=== PATIENT | female | born 1970 | race Caucasian/White ===

== ENCOUNTER → 2017-05-20 22:08 | Emergency (ER) | payer OTHER ==
[~2017-05-20 22:08] MED LIST: Famotidine TAB* 20 MG PO ONE; Ketorolac INJ* 60 MG/2 ML VIAL IM ONE
[2017-05-20 22:30] VITALS: BP 107/89
--- NOTE | 2017-05-20 23:17 | ED ---
Sabrina Cortez Alok, scribed for Danny Jordan MD on 05/20/17 at 2232 . Skin Complaint - HPI Summary HPI Summary: 47F presents to the ED for multiple insect bites on her back. Pt states that she was stung a total of 8 times on her back at 2030 which became immediately stinging and pruritus followed by tingling of her upper and lower extremities. Pt applied hydrocortisone to her bites and took two Benadryl at approximately 2040. Pt also notes nausea after her insect bites lasting minutes. Pt denies dyspnea or dysphagia. The insect which bit the pt was brought for inspection. - History of Current Complaint Chief Complaint: EDAllergicReaction Time Seen by Provider: 05/20/17 22:15 Stated Complaint: ALLERGIC REACTION TO BEE STING Hx Obtained From: Patient Hx Last Menstrual Period: hysterectomy Onset/Duration: Started Hours Ago, Still Present Skin Exposure Onset/Duration: Hours Ago Timing: Constant Onset Severity: Moderate Current Severity: Moderate Skin Location: Other: - back Character: Pruritus, Pain Aggravating Symptom(s): Nothing Alleviating Symptom(s): OTC Meds - benadryl, OTC Creams/Salves - hydrocortisone Associated Signs & Symptoms: Nausea - Allergy/Home Medications Allergies/Adverse Reactions: Allergies Allergy/AdvReac Type Severity Reaction Status Date / Time No Known Allergies Allergy Verified 03/17/16 11:56 PMH/Surg Hx/FS Hx/Imm Hx Endocrine/Hematology History: Denies: Hx Diabetes, Hx Thyroid Disease Cardiovascular History: Denies: Hx Hypertension, Hx Pacemaker/ICD Respiratory History: Denies: Hx Asthma, Hx Chronic Obstructive Pulmonary Disease (COPD) GI History: Denies: Hx Ulcer Musculoskeletal History: Denies: Hx Rheumatoid Arthritis, Hx Osteoporosis Sensory History: Denies: Hx Hearing Aid Psychiatric History: Denies: Hx Panic Disorder - Cancer History Hx Chemotherapy: No Hx Radiation Therapy: No - Surgical History Surgery Procedure, Year, and Place: CARPAL TUNNEL REPAIR 07/06/12. HYSTERECTOMY 2006. 1987. APPENDECTOMY 2004. tubal ligation Infectious Disease History: Denies: Hx Hepatitis, Hx Human Immunodeficiency Virus (HIV), History Other Infectious Disease, Traveled Outside the [place] in Last 30 Days - Family History Known Family History: Negative: Cardiac Disease, Hypertension, Diabetes - Social History Lives: With Family Alcohol Use: None Substance Use Type: Reports: None Smoking Status (MU): Former Smoker Amount Used/How Often: 1-2 cig. day Review of Systems Negative: Fever Negative: Other - dysphagia Negative: Other - dyspnea Positive: Nausea Positive: Other - stinging, pruritus All Other Systems Reviewed And Are Negative: Yes Physical Exam Triage Information Reviewed: Yes Vital Signs On Initial Exam: Initial Vital Signs Temp 98.8 F 05/20/17 22:24 Pulse 75 05/20/17 22:24 Resp 16 05/20/17 22:24 BP 107/89 05/20/17 22:24 Pulse Ox 100 05/20/17 22:24 Vital Signs Reviewed: Yes Appearance: Positive: Well-Appearing, No Pain Distress Skin: Positive: Other - Macular areas ranging from 1 mm to 1 cm in diameter back. Lower left side back shows one 6 cm in diameter region. Head/Face: Positive: Normal Head/Face Inspection Eyes: Positive: Normal ENT: Positive: Normal ENT inspection Neck: Positive: Supple, Nontender Respiratory/Lung Sounds: Positive: Clear to Auscultation, Breath Sounds Present Cardiovascular: Positive: RRR Abdomen Description: Positive: Nontender, Soft Bowel Sounds: Positive: Present Musculoskeletal: Positive: Normal Neurological: Positive: Normal Psychiatric: Positive: Normal, Affect/Mood Appropriate Diagnostics - Vital Signs Vital Signs Temp Pulse Resp BP Pulse Ox 05/20/17 22:24 98.8 F 75 16 107/89 100 - Laboratory Lab Statement: Any lab studies that have been ordered have been reviewed, and results considered in the medical decision making process. Course/Dx - Course Course Of Treatment: Ms. Sanchez was bitten/stung by a large insect on the back. They brought the bug but is is pretty crushed it is likelya typ of wasp. She had pain and itching and then got nauseated and felt faint. Her fiingers and arms got tingly. She took benadryl and felt somewhat better on arrival. She was additionally given pepcid and observed here. I expect that she will go home if she continues to feel well. - Diagnoses Provider Diagnoses: Hymenoptera reaction Discharge - Discharge Plan Condition: Stable Disposition: HOME Patient Education Materials: Insect Bite or Sting (ED) Referrals: Yary Fierro EAP COUNSELOR [Primary Care Provider] - The documentation as recorded by the Sabrina peña Alok accurately reflects the service I personally performed and the decisions made by me, Danny Jordan MD.
== END | disposition home or self-care (01) ==
LOC: ED 22:08
DX: T63.441A Toxic effect of venom of bees, accidental (unintentional), initial encounter (principal); Y92.89 Other specified places as the place of occurrence of the external cause; L29.9 Pruritus, unspecified; Z87.891 Personal history of nicotine dependence
CPT/HCPCS: 96372; 99282; A9270-GY

== ENCOUNTER 2017-10-29 21:38 | Emergency (ER) | payer OTHER ==
[2017-10-29 21:57] VITALS: BP 141/89
--- NOTE | 2017-10-29 22:02 | ED ---
Lower Extremity - HPI Summary HPI Summary: 47 yr old female with the complaint of left lateral foot pain. She fell down stairs last night. She has been walking all day on her foot but it hurts to bear weight over the lateral toe and foot left foot. She has an abrasion to the lower left leg, but no pain on bearing weight there. Her Tetanus shot is up to date. She has no other complaint.s - History of Current Complaint Chief Complaint: UCLowerExtremity Stated Complaint: LEFT FOOT INJ Time Seen by Provider: 10/29/17 21:47 Hx Last Menstrual Period: hysterectomy - Allergies/Home Medications Allergies/Adverse Reactions: Allergies Allergy/AdvReac Type Severity Reaction Status Date / Time No Known Allergies Allergy Verified 10/29/17 21:45 Home Medications: Home Medications Ibuprofen TAB* [Advil TAB*] 800 mg PO Q6H PRN 10/29/17 [History Confirmed ] Omeprazole CAP* [Prilosec CAP* 20 MG] 20 mg PO DAILY 10/29/17 [History Confirmed 10/29/17] PMH/Surg Hx/FS Hx/Imm Hx Endocrine/Hematology History: Denies: Hx Diabetes, Hx Thyroid Disease Cardiovascular History: Denies: Hx Hypertension, Hx Pacemaker/ICD Respiratory History: Denies: Hx Asthma, Hx Chronic Obstructive Pulmonary Disease (COPD) GI History: Denies: Hx Ulcer Musculoskeletal History: Denies: Hx Rheumatoid Arthritis, Hx Osteoporosis Sensory History: Denies: Hx Hearing Aid Psychiatric History: Denies: Hx Panic Disorder - Cancer History Hx Chemotherapy: No Hx Radiation Therapy: No - Surgical History Surgery Procedure, Year, and Place: CARPAL TUNNEL REPAIR 07/06/12. HYSTERECTOMY 2006. 1987. APPENDECTOMY 2004. tubal ligation Infectious Disease History: No Infectious Disease History: Denies: Hx Hepatitis, Hx Human Immunodeficiency Virus (HIV), History Other Infectious Disease, Traveled Outside the [place] in Last 30 Days - Family History Known Family History: Positive: None Negative: Cardiac Disease, Hypertension, Diabetes - Social History Occupation: Employed Full-time Lives: With Family Alcohol Use: None Substance Use Type: Reports: None Smoking Status (MU): Heavy Every Day Tobacco Smoker Amount Used/How Often: 1/2 PPD Have You Smoked in the Last Year: Yes Review of Systems Constitutional: Negative Positive: Other - trauma to left foot All Other Systems Reviewed And Are Negative: Yes Physical Exam Triage Information Reviewed: Yes Vital Signs On Initial Exam: Initial Vitals Temp Pulse Resp BP Pulse Ox 98 F 101 16 141/89 100 10/29/17 21:50 10/29/17 21:50 10/29/17 21:50 10/29/17 21:50 10/29/17 21:50 Vital Signs Reviewed: Yes Appearance: Positive: Well-Appearing, No Pain Distress Skin: Positive: Warm, Other - bruise over the left 5th toe and and abrasion over the left anterior pretibial surface that is small 1 cm in diameter.. Eyes: Positive: EOMI Neck: Positive: Supple, Nontender. Negative: Tenderness @ Respiratory/Lung Sounds: Positive: Clear to Auscultation, Breath Sounds Present Cardiovascular: Positive: RRR. Negative: Murmur Abdomen Description: Positive: Nontender. Negative: CVA Tenderness (R), CVA Tenderness (L) Musculoskeletal: Positive: Strength/ROM Intact Neurological: Positive: Sensory/Motor Intact, Alert, Oriented to Person Place, Time, CN Intact II-III Psychiatric: Positive: Normal - Shunk Coma Scale Best Eye Response: 4 - Spontaneous Best Motor Response: 6 - Obeys Commands Best Verbal Response: 5 - Oriented Diagnostics - Vital Signs Vital Signs Temp Pulse Resp BP Pulse Ox 10/29/17 21:50 98 F 101 16 141/89 100 - Laboratory Lab Statement: Any lab studies that have been ordered have been reviewed, and results considered in the medical decision making process. - Radiology left foot Xray Interpretation: Positive (See Comments) Radiology Interpretation Completed By: ED Physician Lower Extremity Course/Dx - Course Course Of Treatment: 47 yr old with bruising to the left 5th toe, and abrasion with td up to date. Fracture on xray. Post op shoe. she was told to follow up with orthopedics next week. - Diagnoses Provider Diagnoses: Fracture of fifth toe, left, closed, Hypertension Discharge - Discharge Plan Condition: Good Disposition: HOME Patient Education Materials: Toe Fracture (ED) Referrals: Yary Fierro NP [Primary Care Provider] - 2 Days Grant Watkins MD [Medical Doctor] - 2 Days
--- NOTE | 2017-10-30 07:49 | RAD ---
INDICATION: Left foot trauma COMPARISON: None TECHNIQUE: AP, lateral, and oblique views were obtained. FINDINGS: The bony structures, joint spaces, and soft tissues are normal for age. IMPRESSION: NO ACUTE FRACTURE. IF THERE IS PERSISTENT PAIN, SUGGEST FOLLOW-UP IN 7-10 DAYS.
== END 2017-10-29 22:40 | disposition home or self-care (01) ==
LOC: UCCORT 21:38
DX: S92.502A Displaced unspecified fracture of left lesser toe(s), initial encounter for closed fracture (principal); S80.812A Abrasion, left lower leg, initial encounter; W10.9XXA Fall (on) (from) unspecified stairs and steps, initial encounter; Y93.9 Activity, unspecified; Y92.9 Unspecified place or not applicable; Y99.9 Unspecified external cause status; Z72.0 Tobacco use
CPT/HCPCS: 99212; G0463

== ENCOUNTER 2017-12-31 11:55 | Emergency (ER) | payer OTHER ==
[2017-12-31 12:07] VITALS: BP 126/92
--- NOTE | 2017-12-31 12:17 | UC ---
Respiratory Complaint HPI - HPI Summary HPI Summary: cough x 1 day + fever , chills body aches no sore throat, concern about Flu - History of Current Complaint Chief Complaint: UCGeneralIllness Stated Complaint: FLU SYMPTOMS Time Seen by Provider: 12/31/17 12:12 Hx Obtained From: Patient Hx Last Menstrual Period: hysterectomy Onset/Duration: Sudden Onset, Lasting Days - 1, Still Present Timing: Constant Severity Initially: Moderate Severity Currently: Moderate Pain Intensity: 4 Character: Cough: Nonproductive Aggravating Factors: Allergens, Deep Breaths Alleviating Factors: Nothing Associated Signs And Symptoms: Positive: Fever, Chills, URI. Negative: Dyspnea , Pleuritic Chest Pain, Hemoptysis, Dizziness, Calf Pain, Calf Swelling - Allergies/Home Medications Allergies/Adverse Reactions: Allergies Allergy/AdvReac Type Severity Reaction Status Date / Time No Known Allergies Allergy Verified 12/31/17 12:07 Home Medications: Home Medications Citalopram TAB* [CeleXA TAB*] 20 mg PO DAILY 12/31/17 [History Confirmed ] PMH/Surg Hx/FS Hx/Imm Hx Psychological History: Anxiety, Depression - Surgical History Surgical History: Yes Surgery Procedure, Year, and Place: CARPAL TUNNEL REPAIR 07/06/12. HYSTERECTOMY 2006. 1987. APPENDECTOMY 2004. tubal ligation - Family History Known Family History: Positive: None Negative: Cardiac Disease, Hypertension, Diabetes - Social History Alcohol Use: None Substance Use Type: None Smoking Status (MU): Heavy Every Day Tobacco Smoker Amount Used/How Often: 1/2 PPD Have You Smoked in the Last Year: Yes Household Exposure Type: Cigarettes Review of Systems Constitutional: Fever, Chills, Fatigue Skin: Negative Eyes: Negative ENT: Nasal Discharge Respiratory: Cough Cardiovascular: Negative Gastrointestinal: Negative Genitourinary: Negative Musculoskeletal: Arthralgia, Myalgia Is Patient Immunocompromised?: No All Other Systems Reviewed And Are Negative: Yes Physical Exam Triage Information Reviewed: Yes Appearance: Well-Appearing, No Pain Distress, Well-Nourished Vital Signs: Initial Vital Signs Temp 98.9 F 12/31/17 12:04 Pulse 92 12/31/17 12:04 Resp 14 12/31/17 12:04 BP 126/92 12/31/17 12:04 Pulse Ox 99 12/31/17 12:04 Vital Signs Reviewed: Yes Eye Exam: Normal Eyes: Positive: Conjunctiva Clear ENT: Positive: Normal ENT inspection, Hearing grossly normal, Pharynx normal Neck: Positive: Supple, Tenderness @, Enlarged Nodes @ Respiratory: Positive: Chest non-tender, Lungs clear, Normal breath sounds, No respiratory distress Cardiovascular: Positive: RRR, No Murmur, Pulses Normal Abdominal Exam: Normal Abdomen Description: Positive: Nontender, Soft Bowel Sounds: Positive: Present Neurological Exam: Normal Neurological: Positive: Alert, Muscle Tone Normal Skin Exam: Normal UC Diagnostic Evaluation - Laboratory O2 Sat by Pulse Oximetry: 99 Respiratory Course/Dx - Differential Dx/Diagnosis Provider Diagnoses: viral illness Discharge - Discharge Plan Condition: Stable Disposition: HOME Patient Education Materials: Viral Syndrome (ED) Referrals: Yary Fierro NP [Primary Care Provider] - If Needed
== END 2017-12-31 12:45 | disposition home or self-care (01) ==
LOC: UCCORT 11:55
DX: B34.9 Viral infection, unspecified (principal); F41.8 Other specified anxiety disorders; F17.210 Nicotine dependence, cigarettes, uncomplicated
CPT/HCPCS: 87502; 99211; G0463

== ENCOUNTER 2019-06-13 07:03 | Emergency (ER) | payer BC, OTHER ==
[2019-06-13 07:41] LABS: ABS Eosinophils 0.1 10^3/ul (0-0.6); ABS Lymphocytes 1.4 10^3/ul (1.0-4.8); ABS Monocytes 0.3 10^3/ul (0-0.8); ABS Neutrophils 1.7 10^3/ul (1.5-7.7); Eosinophil % 2.5 %; Hematocrit 37 % (35-47); Hemoglobin 12.6 g/dL (12.0-16.0); Lymphocyte % 40.2 %; Mean Corpuscular HGB Conc 34 g/dL (31-36); Mean Corpuscular Hemoglobin 31 pg (27-31); Mean Corpuscular Volume 90 fL (80-97); Mean Platelet Volume 8.8 fL (7.4-10.4); Platelet Count 156 10^3/uL (150-450); Red Blood Count 4.12 10^6 /uL (3.70-4.87); Red Cell Distribution Width 14 % (10-15); White Blood Count 3.5 10^3/uL (3.5-10.8)
[2019-06-13 07:50] LABS: INR 1.1 (0.82-1.09)
[2019-06-13 07:59] LABS: Albumin 4.2 g/dL (3.2-5.2); Albumin/Globulin Ratio 1.6 (1-3); Calcium 9.3 mg/dL (8.6-10.3); EGFR African American 99.4 (>60); EGFR Non-African American 82.1 (>60); Globulin 2.7 g/dL (2-4); Potassium 3.9 mmol/L (3.5-5.0); Total Bilirubin 0.3 mg/dL (0.2-1.0); Total Protein 6.9 g/dL (6.4-8.9)
[2019-06-13 10:16] VITALS: BP 106/81
--- NOTE | 2019-06-13 11:24 | ED ---
Palpitations / Dysrhythmia - HPI Summary HPI Summary: Patient is an otherwise healthy 49-year-old female who presents to the ED with symptoms of heart palpitations. Patient states she has had feelings of palpitations and skipping beats over the past several days. She also endorses some tingling into the left arm. She states she has never had this before. Denies any medication changes and states she only takes Imitrex as needed for migraines which she has not needed recently. She denies any excess caffeine use , but states she tends to have 2 cups of coffee and 2 sodas per day at her baseline. Denies any change in diet. Patient denies any CP or SOB. She states symptoms are not worse or better with positioning or rest. She does not feel a change in the palpitations at morning or at night and states they are constant. She is feeling them currently on arrival. Past medical history includes migraines Social history includes no alcohol, but every day smoking history - History of Current Complaint Chief Complaint: EDChestPainROMI Time Seen by Provider: 06/13/19 07:18 Hx Obtained From: Patient Onset/Duration: Sudden Onset Timing: Constant Severity Initially: Moderate Severity Currently: Moderate Character: Irregular Associated Signs & Symptoms: Negative - Risk Factors Cardiac: Negative Pulmonary Embolism: Negative Atrial Fibrillation: Negative - Allergy/Home Medications Allergies/Adverse Reactions: Allergies Allergy/AdvReac Type Severity Reaction Status Date / Time No Known Allergies Allergy Verified 12/31/17 12:07 PMH/Surg Hx/FS Hx/Imm Hx Previously Healthy: Yes Endocrine/Hematology History: Denies: Hx Diabetes, Hx Thyroid Disease Cardiovascular History: Denies: Hx Hypertension, Hx Pacemaker/ICD Respiratory History: Denies: Hx Asthma, Hx Chronic Obstructive Pulmonary Disease (COPD) GI History: Denies: Hx Ulcer Musculoskeletal History: Denies: Hx Rheumatoid Arthritis, Hx Osteoporosis Sensory History: Denies: Hx Hearing Aid Psychiatric History: Denies: Hx Panic Disorder - Cancer History Hx Chemotherapy: No Hx Radiation Therapy: No - Surgical History Surgery Procedure, Year, and Place: CARPAL TUNNEL REPAIR 07/06/12. HYSTERECTOMY 2006. 1987. APPENDECTOMY 2004. tubal ligation - Immunization History Hx Pertussis Vaccination: No Immunizations Up to Date: Yes Infectious Disease History: No Infectious Disease History: Denies: Hx Hepatitis, Hx Human Immunodeficiency Virus (HIV), History Other Infectious Disease, Traveled Outside the [place] in Last 30 Days - Family History Known Family History: Positive: None Negative: Cardiac Disease, Hypertension, Diabetes - Social History Occupation: Unemployed Lives: With Family Alcohol Use: None Substance Use Type: Reports: None Smoking Status (MU): Heavy Every Day Tobacco Smoker Amount Used/How Often: 1/2 PPD Have You Smoked in the Last Year: Yes Review of Systems Negative: Fever, Chills, Skin Diaphoresis Negative: Shortness Of Breath, Cough Negative: Abdominal Pain, Vomiting, Diarrhea Positive: see HPI Negative: Arthralgia, Myalgia Skin: Negative Neurological: Negative All Other Systems Reviewed And Are Negative: Yes Physical Exam Triage Information Reviewed: Yes Vital Signs On Initial Exam: Initial Vitals Temp Pulse Resp BP Pulse Ox 99.1 F 83 20 134/82 100 06/13/19 07:15 06/13/19 07:15 06/13/19 07:15 06/13/19 07:15 06/13/19 07:15 Vital Signs Reviewed: Yes Appearance: Positive: Well-Appearing, Well-Nourished Skin: Positive: Warm, Skin Color Reflects Adequate Perfusion Head/Face: Positive: Normal Head/Face Inspection Eyes: Positive: EOMI, LINDA, Conjunctiva Clear Neck: Positive: Supple, Nontender, No Lymphadenopathy Respiratory/Lung Sounds: Positive: Clear to Auscultation, Breath Sounds Present Cardiovascular: Positive: RRR, Pulses are Symmetrical in both Upper and Lower Extremities Musculoskeletal: Positive: Normal, Strength/ROM Intact Neurological: Positive: Speech Normal Psychiatric: Positive: Normal, Affect/Mood Appropriate AVPU Assessment: Alert Diagnostics - Vital Signs Vital Signs Temp Pulse Resp BP Pulse Ox 06/13/19 10:18 98.2 F 76 16 106/81 100 06/13/19 10:00 63 15 100 06/13/19 09:51 67 16 106/81 100 06/13/19 09:21 65 17 122/83 99 06/13/19 09:00 67 15 98 06/13/19 08:51 61 14 134/86 100 06/13/19 08:21 73 14 127/91 99 06/13/19 08:00 63 10 99 06/13/19 07:51 72 17 111/80 100 06/13/19 07:21 73 20 128/86 100 06/13/19 07:15 99.1 F 83 20 134/82 100 - Laboratory Lab Results: Lab Results 06/13/19 06/13/19 06/13/19 Range/Units 07:33 07:33 07:33 WBC 3.5 (3.5-10.8) 10^3/uL RBC 4.12 (3.70-4.87) 10^6 /uL Hgb 12.6 (12.0-16.0) g/dL Hct 37 (35-47) % MCV 90 (80-97) fL MCH 31 (27-31) pg MCHC 34 (31-36) g/dL RDW 14 (10-15) % Plt Count 156 (150-450) 10^3/uL MPV 8.8 (7.4-10.4) fL Neut % (Auto) 46.9 % Lymph % (Auto) 40.2 % [place] % (Auto) 9.7 % Eos % (Auto) 2.5 % Baso % (Auto) 0.7 % Absolute Neuts (auto) 1.7 (1.5-7.7) 10^3/ul Absolute Lymphs (auto) 1.4 (1.0-4.8) 10^3/ul Absolute Monos (auto) 0.3 (0-0.8) 10^3/ul Absolute Eos (auto) 0.1 (0-0.6) 10^3/ul Absolute Basos (auto) 0.0 (0-0.2) 10^3/ul Absolute Nucleated RBC 0.0 10^3/ul Nucleated RBC % 0.0 INR (Anticoag Therapy) 1.10 H (0.82-1.09) Sodium 140 (135-145) mmol/L Potassium 3.9 (3.5-5.0) mmol/L Chloride 109 (101-111) mmol/L Carbon Dioxide 24 (22-32) mmol/L Anion Gap 7 (2-11) mmol/L BUN 15 (6-24) mg/dL Creatinine 0.75 (0.51-0.95) mg/dL Est GFR ( Amer) 99.4 (>60) Est GFR (Non-Af Amer) 82.1 (>60) BUN/Creatinine Ratio 20.0 (8-20) Glucose 102 H (70-100) mg/dL Calcium 9.3 (8.6-10.3) mg/dL Total Bilirubin 0.30 (0.2-1.0) mg/dL AST 14 (13-39) U/L ALT 12 (7-52) U/L Alkaline Phosphatase 86 (34-104) U/L Troponin I 0.00 (<0.04) ng/mL Total Protein 6.9 (6.4-8.9) g/dL Albumin 4.2 (3.2-5.2) g/dL Globulin 2.7 (2-4) g/dL Albumin/Globulin Ratio 1.6 (1-3) Result Diagrams: 06/13/19 07:33 06/13/19 07:33 Lab Statement: Any lab studies that have been ordered have been reviewed, and results considered in the medical decision making process. Course/Dx - Course Course Of Treatment: As patient states she is feeling palpitations on arrival, an EKG was immediately performed. This shows normal sinus rhythm with no evidence of PVCs, A. fib or other irregularities. She was kept on the monitor for her 3 hour stay which also showed no evidence of irregularities of heart rhythm. She does state after arrival, she no longer feels the palpitations, however states she has felt them over the past 2 days. She denies any SOB or CP. She states she has been able to complete her normal daily activities with no limitations. She states the feeling of palpitations does not limit her in any way. She has never had this before. She takes no blood thinners or other medications at this time. She denies any cardiac history and tends to be hypotensive at 90/60 at her baseline. She is nondiaphoretic and nontoxic in appearing. On physical examination, lungs CTA, RRR, EOMI/PERRLA, no abdominal tenderness throughout on my palpation. No bilateral swelling of the lower extremities. Pulses +2 intact bilaterally in the upper and lower extremities. Patient appears well. All labs are unremarkable including a troponin of 0.00. Discussed the importance of very close follow-up with a biomedical repair technician at this time. She states she has a biomedical repair technician she would like to see in [place] and does not need a referral. She states she will call them today to have close follow-up. She understands to return if she develops any chest pain, shortness of breath or any worsening or changing symptoms. - Diagnoses Differential Diagnosis/HQI/PQRI: Positive: Other - excessive caffeine use, anxiety, palpitations Provider Diagnoses: Palpitations Discharge - Sign-Out/Discharge Documenting (check all that apply): Patient Departure Patient Received Moderate/Deep Sedation with Procedure: No - Discharge Plan Condition: Stable Disposition: HOME Patient Education Materials: Heart Palpitations (ED) Referrals: Yary Fierro NP [Primary Care Provider] - Additional Instructions: As discussed, please see your biomedical repair technician as soon as possible If you develop any worsening symptoms, please return to the ED immediately - Billing Disposition and Condition Condition: STABLE Disposition: Home
== END 2019-06-13 10:18 | disposition home or self-care (01) ==
LOC: ED 07:03
DX: R00.2 Palpitations (principal); F17.210 Nicotine dependence, cigarettes, uncomplicated; R94.31 Abnormal electrocardiogram [ECG] [EKG]; R20.0 Anesthesia of skin
CPT/HCPCS: 36415; 71046; 80053; 84484; 85025; 85610; 93005; 99284